=== PATIENT | male | born 1990 ===

== ENCOUNTER 2019-07-15 21:15 | Emergency (ER) | payer OTHER ==
[~2019-07-15] VITALS: Ht 188 cm; Wt 79.8 kg
[2019-07-15] MEDS ORDERED: BACLOFEN10 MG (21:41)
[2019-07-15] MEDS ORDERED: OXYCODONE HCL10 M1 (21:41)
[2019-07-15] MEDS ORDERED: GRALISE600 MG (21:41)
[2019-07-15] MEDS ORDERED: ULTRACET PO (22:47)
== END 2019-07-15 23:16 | disposition home or self-care (01) ==
LOC: ER 21:15
DX: G89.11 Acute pain due to trauma (principal); M54.5 Low back pain